=== PATIENT | male | born 2000 | race Caucasian/White ===

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

== ENCOUNTER 2021-09-18 17:36 | Emergency (ER) | payer SELFPAY ==
[~2021-09-18] VITALS: Ht 190.5 cm; Wt 93.0 kg
[2021-09-18] MEDS ORDERED: MORPHINE SULFATE 2 MG/ML INJ. IVP ONE (18:00)
[2021-09-18 18:29] LABS: BASO # 0.1 x10^3/uL (0.0-0.2); BASO % 1 % (0-3); EOS % 0 % (0-3); HEMATOCRIT 47.4 % (39.0-53.0); HEMOGLOBIN 16.3 g/dL (13.0-17.5); LYMPH # 1.7 x10^3/uL (1.0-4.8); LYMPH % 22 % (24-48); MEAN CORPUSCULAR HEMOGLOBIN 30 pg (25-35); MEAN CORPUSCULAR HGB CONC 35 g/dL (31-37); MEAN CORPUSCULAR VOLUME 86 fL (79-100); MONO # 0.5 x10^3/uL (0.0-1.1); MONO % 7 % (0-9); NEUT # 5.6 x10^3/uL (1.8-7.7); NEUT % 71 % (31-73); PLATELET COUNT 333 x10^3/uL (140-400); RED CELL DISTRIBUTION WIDTH 13.5 % (11.5-14.5); WHITE BLOOD COUNT 7.9 x10^3/uL (4.0-11.0)
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
[2021-09-18 20:15] LABS: CALCIUM 8.9 mg/dL (8.5-10.1); CREATININE 1.1 mg/dL (0.7-1.3); GFR 84.5; POTASSIUM 3.7 mmol/L (3.5-5.1)
[2021-09-18] MEDS ORDERED: IOHEXOL 350 MG/ML 100 ML VIAL. IV ONE (20:15)
[2021-09-18 20:22] LABS: ALBUMIN 3.6 g/dL (3.4-5.0); ALBUMIN/GLOBULIN RATIO 1.1 (1.0-1.7); TOTAL BILIRUBIN 1.6 mg/dL (0.2-1.0); TOTAL PROTEIN 6.8 g/dL (6.4-8.2)
[2021-09-18 20:30] VITALS: BP 123/68
--- NOTE | 2021-09-19 19:09 | EKG ---
[facility] [address] [place] [address] Test Date: 2021-09-18 Test Time: 18:46:29 Pat Name: OMKAR BAUTISTA Department: Room: Gender: M Resource Recovery Specialist: : 2000 Requested By: SHAMAR MUNOZ Order Number: [id number] Reading MD: Measurements Intervals [place] Rate: 72 P: 64 LA: 164 QRS: 3 QRSD: 90 T: 10 QT: 370 QTc: 411 Interpretive Statements SINUS RHYTHM OTHERWISE NORMAL ECG RI6.01 No previous ECG available for comparison
== END 2021-09-18 20:35 | disposition short-term general hospital (02) ==
LOC: EEVIPCON 17:36 → ER 17:36
DX: S52.25 Comminuted fracture of shaft of ulna (principal); R07.89 Other chest pain; F17.200 Nicotine dependence, unspecified, uncomplicated; W34.09XA Accidental discharge from other specified firearms, initial encounter; Y93.89 Activity, other specified; Y92.89 Other specified places as the place of occurrence of the external cause; Y99.8 Other external cause status
CPT/HCPCS: 36415; 71045; 73200; 80053; 83605; 84484; 85025; 87040; 93005; 96365; 96375; 99285; J0690; J2270